=== PATIENT | female | born 2005 | race Caucasian/White ===

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

== ENCOUNTER 2025-03-09 13:07 | Emergency (ER) | payer MEDICAID, OTHER ==
[~2025-03-09] VITALS: Ht 165.1 cm; Wt 98.8 kg
[~2025-03-09 13:07] MED LIST changes: +BACT800T5 PO; +DOXY100T; +HYDR-3713 PO; +LEXA1TAB PO; +LIDO4CRE12 TOP; -LIDOCAINE 1% MDV 20ML VIAL As Ordered ONE; +VALA1TAB5 PO; +VITA200016
[2025-03-09 14:41] LABS: BASO # 0.1 10^3/uL (0.0-0.2); BASO % 0.7 % (0.0-1.0); EOS # 0.2 10^3/uL (0.0-0.5); EOS % 2.1 % (0.0-3.0); LYMPH # 2.1 10^3/uL (1.5-5.0); LYMPH % 20.1 % (24.0-44.0); MONO # 0.8 10^3/uL (0.0-0.8); MONO % 7.8 % (2.0-8.0); NEUTROPHILS # 7.3 10^3/uL (1.5-8.5); NEUTROPHILS % 69.1 % (36.0-66.0); PLATELET COUNT, AUTOMATED 381 10^3/uL (150-450)
[2025-03-09 15:04] LABS: ALT/SGPT 20 U/L (7.0-40); AST/SGOT 18 U/L (<34); CALCIUM LEVEL 9.1 MG/DL (8.5-10.1); CARBON DIOXIDE LEVEL 29 MMOL/L (20-31); CHLORIDE LEVEL 103 MMOL/L (98-107); CREATININE FOR GFR 0.66 MG/DL (0.55-1.30); GLOMERULAR FILTRATION RATE > 90.0 (>60); POTASSIUM SERUM 4.5 MMOL/L (3.5-5.1); SODIUM LEVEL 140 MMOL/L (136-145)
[2025-03-09 15:12] LABS: HCG, SERUM QUALITATIVE NEGATIVE (NEGATIVE)
[2025-03-09] MEDS: LIDOCAINE VISCOUS 2% SOLN 15 ML UDC PO ONE (17:38)
[2025-03-09] MEDS: MAALOX 30 ML SUSP *UDC PO ONE (17:38)
[2025-03-09 18:37] VITALS: BP 134/87; TEMP 98.4; O2SAT 98
[2025-03-09] MEDS ORDERED: MAALSUS19 PO (18:38)
[2025-03-09] MEDS ORDERED: LIDO15SO8 PO (18:38)
== END 2025-03-09 18:46 | disposition home or self-care (01) ==
LOC: M ED 13:07
DX: R10.13 Epigastric pain (principal); Z79.1 Long term (current) use of non-steroidal anti-inflammatories (NSAID); Z79.899 Other long term (current) drug therapy